=== PATIENT | female | born 1970 | race Hispanic/Latino ===

== ENCOUNTER 2017-03-16 01:34 | Emergency (ER) | payer OTHER ==
[2017-03-16 01:45] VITALS: BMI 33.0
[2017-03-16 01:54] VITALS: TEMP 98.3
[2017-03-16] MEDS ORDERED: Tmp-Smz 800 mg-160 mg DS Tab PO STA (03:02)
[2017-03-16] MEDS ORDERED: Oxycodone/Acetaminophen 5/325 mg Tab PO STA (03:02)
[2017-03-16] MEDS ORDERED: Amoxicillin-Clav 875-125 mg Tab PO STA (03:03)
[2017-03-16 03:23] VITALS: BP 108/76; PULSE 78; RESP 18; O2SAT 98
--- NOTE | 2017-03-16 03:47 | ED PDOC ---
Arrival/HPI - General Chief Complaint: Breast Problem Time Seen by Provider: 03/16/17 03:01 Historian: Patient - History of Present Illness Narrative History of Present Illness (Text): 03/16/17 02:47 A 46 year old female, with a history of diverticulosis, presents to the emergency department complaining of worsening pain and redness of a left breast abscess that she noticed 4 days ago. Patient noticed abscess after taking off bathing suit and is unsure of what caused abscess development. Patient reports went to PMD, who cleaned abscess in office. Patient notes vomiting and diarrhea from what she thinks is Cephalexin that PMD prescribed. Patient reports no relief after taking Tylenol. PMD: Dr. Del Cid Time/Duration: Other (4 days) Symptom Onset: Sudden Symptom Course: Unchanged Activities at Onset: Rest Modifying Factors (Text): no relief with tylenol Past Medical History - Provider Review Nursing Documentation Reviewed: Yes - Infectious Disease Hx of Infectious Diseases: None - Tetanus Immunization Tetanus Immunization: Unknown - Reproductive Menopause: Yes - Cardiac Hx Hypertension: Yes - Pulmonary Hx Respiratory Disorders: Yes Hx Chronic Obstructive Pulmonary Disease (COPD): Yes Hx Tuberculosis: No - Neurological HX Cerebrovascular Accident: No Hx Seizures: No - HEENT Hx HEENT Disorder: No - Renal Hx Renal Disorder: No - Endocrine/Metabolic Hx Endocrine Disorders: No - Hematological/Oncological Hx Blood Disorders: No Hx Cancer: No - Integumentary Hx Dermatological Disorder: No - Musculoskeletal/Rheumatological Hx Musculoskeletal Disorders: No - Gastrointestinal Hx Gastrointestinal Disorders: No Hx Diarrhea: Yes - Genitourinary/Gynecological Hx Genitourinary Disorders: No Hx Sexually Transmitted Diseases: No - Psychiatric Hx Psychophysiologic Disorder: Yes Hx Anxiety: Yes Hx Depression: Yes Hx Substance Use: No - Surgical History Other/Comment: exploratory lung surgery 2011 - Anesthesia Hx Anesthesia: Yes Hx Anesthesia Reactions: No Hx Malignant Hyperthermia: No - Suicidal Assessment Feels Threatened In Home Enviroment: No Family/Social History - Physician Review Nursing Documentation Reviewed: Yes Family/Social History: No Known Family HX Smoking Status: Heavy Smoker > 10 Cigarettes Daily Hx Alcohol Use: Yes Frequency of alcohol use: Socially Hx Substance Use: No Hx Substance Use Treatment: No Allergies/Home Meds Allergies/Adverse Reactions: Allergies ciprofloxacin [From Cipro] Allergy (Mild, Verified 03/16/17 01:45) RASH ciprofloxacin HCl [From Cipro] Allergy (Mild, Verified 03/16/17 01:45) RASH cephalexin Adverse Reaction (Verified 03/16/17 01:46) DIARRHEA Home Medications: Home Meds Medication Instructions Recorded Confirmed Escitalopram [Lexapro] 20 mg PO HS 04/11/13 03/16/17 diaZEpam [Valium] 10 mg PO PRN PRN 04/11/13 03/16/17 amLODIPine [Norvasc] 1 tab PO DAILY 12/07/15 03/16/17 Montelukast [Singulair] 10 mg PO DAILY 03/16/17 03/16/17 Review of Systems - Physician Review All systems were reviewed & negative as marked: Yes - Review of Systems Gastrointestinal: Diarrhea, Vomiting Skin: Abscess (Left breast) Physical Exam Vital Signs Reviewed: Yes Vital Signs Temp Pulse Resp BP Pulse Ox 03/16/17 03:23 78 18 108/76 98 03/16/17 01:53 98.3 F 82 14 115/79 96 Temperature: Afebrile Blood Pressure: Normal Pulse: Regular Respiratory Rate: Normal Appearance: Positive for: Well-Appearing, Non-Toxic, Comfortable Pain Distress: None Mental Status: Positive for: Alert and Oriented X 3 - Systems Exam Head: Present: Atraumatic, Normocephalic Pupils: Present: PERRL Extroacular Muscles: Present: EOMI Conjunctiva: Present: Normal Mouth: Present: Moist Mucous Membranes Neck: Present: Normal Range of Motion Respiratory/Chest: Present: Clear to Auscultation, Good Air Exchange. No: Respiratory Distress, Accessory Muscle Use Cardiovascular: Present: Regular Rate and Rhythm, Normal S1, S2. No: Murmurs Abdomen: Present: Normal Bowel Sounds. No: Tenderness, Distention, Peritoneal Signs Breast/Axillary: Present: Other (2 by 3 cm circular scab with small amount of surrounding erythema on L medial breast). No: Fluctuance Back: Present: Normal Inspection Upper Extremity: Present: Normal Inspection. No: Cyanosis, Edema Lower Extremity: Present: Normal Inspection. No: Edema Neurological: Present: GCS=15, CN II-XII Intact, Speech Normal Skin: Present: Warm, Dry, Normal Color. No: Rashes Psychiatric: Present: Alert, Oriented x 3, Normal Insight, Normal Concentration Medical Decision Making - Medication Orders Current Medication Orders: Discontinued Medications Amoxicillin/Clavulanate Potassium (Augmentin 875 Mg-125 Mg Tab) 1 tab PO STAT STA PRN Reason: Protocol Stop: 03/16/17 03:04 Last Admin: 03/16/17 03:19 Dose: 1 tab Oxycodone/Acetaminophen (Percocet 5/325 Mg Tab) 1 tab PO STAT STA Stop: 03/16/17 03:03 Last Admin: 03/16/17 03:19 Dose: 1 tab Trimethoprim/Sulfamethoxazole (Bactrim Ds Tab) 2 tab PO STAT STA PRN Reason: Protocol Stop: 03/16/17 03:03 Last Admin: 03/16/17 03:19 Dose: 2 tab - Scribe Statement The provider has reviewed the documentation as recorded by the Guanakito Peraza Provider Scribe Attestation: All medical record entries made by the Guanakito were at my direction and personally dictated by me. I have reviewed the chart and agree that the record accurately reflects my personal performance of the history, physical exam, medical decision making, and the department course for this patient. I have also personally directed, reviewed, and agree with the discharge instructions and disposition. Disposition/Present on Arrival - Present on Arrival History of DVT/PE: No History of Uncontrolled Diabetes: No Urinary Catheter: No History of Decub. Ulcer: No History Surgical Site Infection Following: None - Disposition Diagnosis: Cellulitis Disposition: HOME/ ROUTINE Disposition Time: 03:03 Condition: STABLE Discharge Instructions (ExitCare): Cellulitis (ED) Additional Instructions: Please follow up with your doctor on Saturday. Return to the ER for any worsening symptoms or for any other concerns. Prescriptions: Acetaminophen with Codeine [Tylenol with Codeine #3 Tablet] 1 each PO Q4H PRN # 10 tablet PRN Reason: Pain, Moderate (4-7) Amoxicillin/Clavulanate [Augmentin 875 MG-125 MG] 1 tab PO BID #20 tab Sulfamethoxazole/Trimethoprim [Bactrim DS 800 mg-160 mg] 2 tab PO BID #40 tab Referrals: Claudia Del Cid DO [Primary Care Provider] - Follow up with primary
== END 2017-03-16 03:23 | disposition home or self-care (01) ==
LOC: ED 01:34
DX: N61.1 Abscess of the breast and nipple (principal)

== ENCOUNTER 2018-04-04 00:16 | Emergency (ER) | payer OTHER ==
[2018-04-04 00:16] VITALS: BMI 33.0
--- NOTE | 2018-04-04 01:19 | ED PDOC ---
Arrival/HPI - General Chief Complaint: Alcohol Ingestion Time Seen by Provider: 04/04/18 01:19 Historian: Patient - History of Present Illness Narrative History of Present Illness (Text): 04/04/18 01:19 Ashley Walter is a 48 year old female, whose past medical history includes asthma and anxiety, who presents to the Emergency department brought in by EMS for alcohol intoxication tonight. Limited HPI and ROS secondary to alcohol intoxication. Time/Duration: Other (tonight) Symptom Onset: Gradual Symptom Course: Unchanged Activities at Onset: Light Past Medical History - Provider Review Nursing Documentation Reviewed: Yes - Infectious Disease Hx of Infectious Diseases: None - Tetanus Immunization Tetanus Immunization: Unknown - Cardiac Hx Hypertension: Yes - Pulmonary Hx Respiratory Disorders: Yes Hx Chronic Obstructive Pulmonary Disease (COPD): Yes Hx Tuberculosis: No - Neurological HX Cerebrovascular Accident: No Hx Seizures: No - HEENT Hx HEENT Disorder: No - Renal Hx Renal Disorder: No - Endocrine/Metabolic Hx Endocrine Disorders: No - Hematological/Oncological Hx Blood Disorders: No Hx Cancer: No - Integumentary Hx Dermatological Disorder: No - Musculoskeletal/Rheumatological Hx Musculoskeletal Disorders: No - Gastrointestinal Hx Gastrointestinal Disorders: No Hx Diarrhea: Yes - Genitourinary/Gynecological Hx Genitourinary Disorders: No Hx Sexually Transmitted Diseases: No - Psychiatric Hx Psychophysiologic Disorder: Yes Hx Anxiety: Yes Hx Depression: Yes Hx Substance Use: No - Surgical History Other/Comment: exploratory lung surgery 2011 - Anesthesia Hx Anesthesia: Yes Hx Anesthesia Reactions: No Hx Malignant Hyperthermia: No - Suicidal Assessment Feels Threatened In Home Enviroment: No Family/Social History - Physician Review Nursing Documentation Reviewed: Yes Family/Social History: Unknown Family HX Smoking Status: Heavy Smoker > 10 Cigarettes Daily Hx Alcohol Use: Yes Hx Substance Use: No Hx Substance Use Treatment: No Allergies/Home Meds Allergies/Adverse Reactions: Allergies ciprofloxacin [From Cipro] Allergy (Mild, Verified 03/16/17 01:45) RASH ciprofloxacin HCl [From Cipro] Allergy (Mild, Verified 03/16/17 01:45) RASH cephalexin Adverse Reaction (Verified 03/16/17 01:46) DIARRHEA Home Medications: Home Meds Medication Instructions Recorded Confirmed Escitalopram [Lexapro] 20 mg PO HS 04/11/13 03/16/17 diaZEpam [Valium] 10 mg PO PRN PRN 04/11/13 03/16/17 amLODIPine [Norvasc] 1 tab PO DAILY 12/07/15 03/16/17 Montelukast [Singulair] 10 mg PO DAILY 03/16/17 03/16/17 Review of Systems - Review of Systems Systems not reviewed;Unavailable: Intoxicated Physical Exam Vital Signs Reviewed: Yes Vital Signs Temp Pulse Resp BP Pulse Ox 04/04/18 04:48 78 18 138/97 H 97 04/04/18 00:36 98.4 F 93 H 17 101/73 96 Temperature: Afebrile Blood Pressure: Normal Pulse: Regular Respiratory Rate: Normal Pain Distress: None Mental Status: Positive for: other (Intoxicated) - Systems Exam Head: Present: Atraumatic, Normocephalic Pupils: Present: PERRL Extroacular Muscles: Present: EOMI Conjunctiva: Present: Normal Mouth: Present: Moist Mucous Membranes Neck: Present: Normal Range of Motion Respiratory/Chest: Present: Clear to Auscultation, Good Air Exchange. No: Respiratory Distress, Accessory Muscle Use Cardiovascular: Present: Regular Rate and Rhythm, Normal S1, S2. No: Murmurs Abdomen: No: Tenderness, Distention, Peritoneal Signs Back: Present: Normal Inspection Upper Extremity: Present: Normal Inspection. No: Cyanosis, Edema Lower Extremity: Present: Normal Inspection. No: Edema Neurological: Present: GCS=15, CN II-XII Intact, Speech Normal Skin: Present: Warm, Dry, Normal Color. No: Rashes Psychiatric: Present: Intoxicated Medical Decision Making ED Course and Treatment: 04/04/18 01:19 Impression: 48 year old female brought in for alcohol intoxication. Plan: -- Reassess and disposition Progress Notes: 04/04/18 05:58 Pt awake, alert, ambulating with steady gait. In no acute distress, clinically sober. Pt denies any complaints, states she feels fine. Pt stable for d/c. - Scribe Statement The provider has reviewed the documentation as recorded by the Guanakito Gómez Provider Scribe Attestation: All medical record entries made by the Scribe were at my direction and personally dictated by me. I have reviewed the chart and agree that the record accurately reflects my personal performance of the history, physical exam, medical decision making, and the department course for this patient. I have also personally directed, reviewed, and agree with the discharge instructions and disposition. Disposition/Present on Arrival - Present on Arrival Any Indicators Present on Arrival: No History of DVT/PE: No History of Uncontrolled Diabetes: No Urinary Catheter: No History of Decub. Ulcer: No History Surgical Site Infection Following: None - Disposition Have Diagnosis and Disposition been Completed?: Yes Diagnosis: Alcohol intoxication Disposition: HOME/ ROUTINE Disposition Time: 04:00 Patient Problems: Current Active Problems Problem Status Onset Alcohol intoxication Acute Condition: IMPROVED Discharge Instructions (ExitCare): Alcohol Abuse and Alcoholism (DC) Additional Instructions: ASHLEY WALTER, thank you for letting us take care of you today. Your provider was Sivakumar Rendon DO and you were treated for ETOH. The emergency medical care you received today was directed at your acute symptoms. If you were prescribed any medication, please fill it and take as directed. It may take several days for your symptoms to resolve. Return to the Emergency Department if your symptoms worsen, do not improve, or if you have any other problems. Please contact your doctor or call one of the physicians/clinics you have been referred to that are listed on the Patient Visit Information form that is included in your discharge packet. Bring any paperwork you were given at discharge with you along with any medications you are taking to your follow up visit. Our treatment cannot replace ongoing medical care by a primary care provider outside of the emergency department. Thank you for allowing the [facility] team to be part of your care today. Do not drink too much alcohol. Follow up with your primary care doctor if you have any concerns. Referrals: [facility], [Non-Staff] - Follow up with primary Forms: [email or web address] (Turkish)
--- NOTE | 2018-04-04 05:03 | PCM.FALL ---
<Homar Puri - Last Filed: 04/04/18 04:59> Post Fall Progress Note - Post Fall Fall Date: 04/04/18 Fall Time: 04:45 - Post Fall Exam Vital Sign: Temp Pulse Resp BP Pulse Ox 98.4 F 78 18 138/97 H 97 04/04/18 00:36 04/04/18 04:48 04/04/18 04:48 04/04/18 04:48 04/04/18 04:48 Skull Exam: Negative for: Scalp wound, Scalp hematoma, Scalp depression, Ridge in skull Eye Exam: Positive for: Pupils equal, Pupils reactive Ear Exam: Negative for: Discharge, Bleeding Nose Exam: Negative for: Discharge, Bleeding Skin Exam: Negative for: Colour, Lacerations, Grazes, Bruising Mouth Exam: Negative for: Tongue bitten, Teeth dislodge Neck Exam: Negative for: Tenderness, Tingling, Weakness Spinal Exam: Negative for: Tenderness, Tingling, Weakness Chest Exam: Negative for: Difficulty breathing, Tenderness in collar bones, Tenderness in ribs Abdomen Exam: Negative for: Tenderness Pelvic Exam: Negative for: Tenderness, Hematuria Arm Exam: Negative for: Deformity, Alteration in range of movement Leg Exam: Negative for: Deformity, Alteration in range of movement Impression/Plan: 48 year old female under ED management for acute alcohol intoxication presents s /p fall. Patient was examined with senior resident. Patient denies hitting her head, injuring her extremities, and denies any other injury. Patient denies any LOC, dizziness, or pre-syncopal events, including arrythmia or aura. Patient is A/o x4 and has good insight. She states that she fell due to her acute alcohol intoxication. A/P -No acute intervention necessary at this time as patient subjectively and objectively has no head trauma, no BUSTAMANTE, no loss of vision, no tenderness to palpation on her head, extremities, or torso. Will continue to monitor closely. <Derrick Fu - Last Filed: 04/04/18 05:45> Post Fall Progress Note - Post Fall Exam Vital Sign: Temp Pulse Resp BP Pulse Ox 98.4 F 78 18 138/97 H 97 04/04/18 00:36 04/04/18 04:48 04/04/18 04:48 04/04/18 04:48 04/04/18 04:48
[2018-04-04 06:51] VITALS: BP 138/82; PULSE 72; RESP 17; TEMP 98; O2SAT 98
== END 2018-04-04 06:51 | disposition home or self-care (01) ==
LOC: ED 00:16
DX: F10.129 Alcohol abuse with intoxication, unspecified (principal); F17.210 Nicotine dependence, cigarettes, uncomplicated; I10 Essential (primary) hypertension

== ENCOUNTER 2018-09-22 21:45 | Emergency (ER) | payer OTHER ==
[2018-09-22 21:46] VITALS: BMI 33.0
--- NOTE | 2018-09-22 23:10 | ED PDOC ---
Arrival/HPI - General Chief Complaint: Alcohol Ingestion Time Seen by Provider: 09/22/18 21:46 Historian: Patient - History of Present Illness Narrative History of Present Illness (Text): 09/22/18 23:09 48 year old female with pmhx of asthma and anxiety presents to the ED by EMS for public intoxication tonight. Patient reports she had a verbal argument with her brother and admits to drinking tonight. Patient denies any fever, chills, chest pain, shortness of breath, nausea, vomiting, diarrhea, urinary symptoms, back pain, neck pain, headache, dizziness, or any other complaints. PMD: Dr. Del Cid Time/Duration: Other (tonight) Symptom Onset: Gradual Activities at Onset: Light Context: Street Past Medical History - Provider Review Nursing Documentation Reviewed: Yes - Infectious Disease Hx of Infectious Diseases: None - Tetanus Immunization Tetanus Immunization: Unknown - Cardiac Hx Hypertension: Yes - Pulmonary Hx Respiratory Disorders: Yes Hx Chronic Obstructive Pulmonary Disease (COPD): Yes Hx Tuberculosis: No - Neurological HX Cerebrovascular Accident: No Hx Seizures: No - HEENT Hx HEENT Disorder: No - Renal Hx Renal Disorder: No - Endocrine/Metabolic Hx Endocrine Disorders: No - Hematological/Oncological Hx Blood Disorders: No Hx Cancer: No - Integumentary Hx Dermatological Disorder: No - Musculoskeletal/Rheumatological Hx Musculoskeletal Disorders: No - Gastrointestinal Hx Gastrointestinal Disorders: No Hx Diarrhea: Yes - Genitourinary/Gynecological Hx Genitourinary Disorders: No Hx Sexually Transmitted Diseases: No - Psychiatric Hx Psychophysiologic Disorder: Yes Hx Anxiety: Yes Hx Depression: Yes Hx Substance Use: No - Surgical History Other/Comment: exploratory lung surgery 2011 - Anesthesia Hx Anesthesia: Yes Hx Anesthesia Reactions: No Hx Malignant Hyperthermia: No - Suicidal Assessment Feels Threatened In Home Enviroment: No Family/Social History - Physician Review Nursing Documentation Reviewed: Yes Family/Social History: No Known Family HX Smoking Status: Heavy Smoker > 10 Cigarettes Daily Hx Alcohol Use: Yes Frequency of alcohol use: Daily Hx Substance Use: No Hx Substance Use Treatment: No Allergies/Home Meds Allergies/Adverse Reactions: Allergies ciprofloxacin [From Cipro] Allergy (Mild, Verified 09/22/18 21:59) RASH ciprofloxacin HCl [From Cipro] Allergy (Mild, Verified 09/22/18 21:59) RASH cephalexin Adverse Reaction (Verified 09/22/18 21:59) DIARRHEA Home Medications: Home Meds Medication Instructions Recorded Confirmed Escitalopram [Lexapro] 20 mg PO HS 04/11/13 03/16/17 diaZEpam [Valium] 10 mg PO PRN PRN 04/11/13 03/16/17 amLODIPine [Norvasc] 1 tab PO DAILY 12/07/15 03/16/17 Montelukast [Singulair] 10 mg PO DAILY 03/16/17 03/16/17 Review of Systems - Physician Review All systems were reviewed & negative as marked: Yes - Review of Systems Constitutional: absent: Fevers, Other (Chills) Respiratory: absent: SOB Cardiovascular: absent: Chest Pain Gastrointestinal: absent: Diarrhea, Nausea, Vomiting Genitourinary Female: absent: Dysuria, Frequency, Hematuria Musculoskeletal: absent: Back Pain, Neck Pain Neurological: absent: Headache, Dizziness Physical Exam - Physical Exam Narrative Physical Exam (Text): Gen: VS reviewed, alert, well developed, well nourished, nontoxic, mild distress. Intoxicated ENT: normal pharynx. Eye: EOMI, PERRL. Neck: no JVD, supple, no adenopathy. CV: regular rate, regular rhythm, no rubs, no murmur, no gallops, S1, S2, pulses equal and strong. Pulm: no distress, clear to auscultation, no wheeze, no rhonchi, breath sounds equal, no rales. Abd: soft, nontender, no guarding, no rebound, no rigidity, normal bowel sounds. Ext: no edema. Skin: good color, no rash, no cyanosis. Psych: responds appropriately to questions, normal affect. Intoxicated. Neuro: oriented x 3, CN2-12 intact grossly, motor intact, sensation intact. Vital Signs Reviewed: Yes Vital Signs Temp Pulse Resp BP Pulse Ox 09/22/18 22:12 98.1 F 87 18 119/78 95 Temperature: Afebrile Blood Pressure: Normal Pulse: Regular Respiratory Rate: Normal Medical Decision Making ED Course and Treatment: 09/22/18 23:09 Impression: 48 year old female presents for public intoxication. Plan: -- Reassess and disposition Prior Visits: Notes and results from previous visits were reviewed. Progress Notes: 09/23/18 06:15 patient seen for alcohol intoxication. patient observed clinically until sobriety. patient has clear speech and steady gait. patient does not exhibit any s/s of alcohol withdrawal, no physical evidence of trauma. patient stable for dc. - Scribe Statement The provider has reviewed the documentation as recorded by the Janieibbriseyda Cheng Provider Scribe Attestation: All medical record entries made by the Scribe were at my direction and personally dictated by me. I have reviewed the chart and agree that the record accurately reflects my personal performance of the history, physical exam, medical decision making, and the department course for this patient. I have also personally directed, reviewed, and agree with the discharge instructions and disposition. Disposition/Present on Arrival - Present on Arrival Any Indicators Present on Arrival: No History of DVT/PE: No History of Uncontrolled Diabetes: No Urinary Catheter: No History of Decub. Ulcer: No History Surgical Site Infection Following: None - Disposition Have Diagnosis and Disposition been Completed?: Yes Diagnosis: Alcohol intoxication Disposition: HOME/ ROUTINE Disposition Time: 06:17 Patient Plan: Discharge Condition: STABLE Discharge Instructions (ExitCare): Alcohol Abuse and Alcoholism (DC) Additional Instructions: you should seek help for your alcohol abuse. Referrals: [facility] [Outside] - Follow up with primary Forms: [employer] (V[place]an)
[2018-09-23 04:48] VITALS: O2SAT 96
[2018-09-23 06:42] VITALS: BP 120/70; PULSE 86; RESP 18; TEMP 98.2
== END 2018-09-23 06:41 | disposition home or self-care (01) ==
LOC: ED 21:45
DX: F10.129 Alcohol abuse with intoxication, unspecified (principal)

== ENCOUNTER 2018-10-25 23:49 | Emergency (ER) | payer OTHER ==
[2018-10-25 23:59] VITALS: BMI 34.4
[2018-10-26 00:13] VITALS: TEMP 97.5
--- NOTE | 2018-10-26 00:15 | ED PDOC ---
Arrival/HPI - General Chief Complaint: Alcohol Ingestion Time Seen by Provider: 10/25/18 23:51 Historian: Patient - History of Present Illness Narrative History of Present Illness (Text): 10/26/18 00:09 48 year old female, whose past medical history includes asthma, anxiety, and alcohol abuse, presents to the emergency department by EMS for public intoxication tonight. Patient admits to drinking alcohol and states she fell and hurt her left knee and right fifth finger. Patient denies any drug use. Patient denies any fever, chills, chest pain, shortness of breath, nausea, vomiting, diarrhea, urinary symptoms, back pain, neck pain, headache, dizziness, or any other complaints/injuries. Time/Duration: Other (tonight) Symptom Onset: Gradual Symptom Course: Unchanged Context: Street Past Medical History - Provider Review Nursing Documentation Reviewed: Yes - Infectious Disease Hx of Infectious Diseases: None - Tetanus Immunization Tetanus Immunization: Unknown - Cardiac Hx Hypertension: Yes - Pulmonary Hx Respiratory Disorders: Yes Hx Chronic Obstructive Pulmonary Disease (COPD): Yes Hx Tuberculosis: No - Neurological HX Cerebrovascular Accident: No Hx Seizures: No - HEENT Hx HEENT Disorder: No - Renal Hx Renal Disorder: No - Endocrine/Metabolic Hx Endocrine Disorders: No - Hematological/Oncological Hx Blood Disorders: No Hx Cancer: No - Integumentary Hx Dermatological Disorder: No - Musculoskeletal/Rheumatological Hx Musculoskeletal Disorders: No - Gastrointestinal Hx Gastrointestinal Disorders: No Hx Diarrhea: Yes - Genitourinary/Gynecological Hx Genitourinary Disorders: No Hx Sexually Transmitted Diseases: No - Psychiatric Hx Psychophysiologic Disorder: Yes Hx Anxiety: Yes Hx Depression: Yes Hx Substance Use: No - Surgical History Other/Comment: exploratory lung surgery 2011 - Anesthesia Hx Anesthesia: Yes Hx Anesthesia Reactions: No Hx Malignant Hyperthermia: No - Suicidal Assessment Feels Threatened In Home Enviroment: No Family/Social History - Physician Review Nursing Documentation Reviewed: Yes Family/Social History: No Known Family HX Smoking Status: Heavy Smoker > 10 Cigarettes Daily Hx Alcohol Use: Yes Hx Substance Use: No Hx Substance Use Treatment: No Allergies/Home Meds Allergies/Adverse Reactions: Allergies ciprofloxacin [From Cipro] Allergy (Mild, Verified 09/22/18 21:59) RASH ciprofloxacin HCl [From Cipro] Allergy (Mild, Verified 09/22/18 21:59) RASH cephalexin Adverse Reaction (Verified 09/22/18 21:59) DIARRHEA Home Medications: Home Meds Medication Instructions Recorded Confirmed RX: Escitalopram [Lexapro] 20 mg PO HS 04/11/13 10/26/18 RX: diaZEpam [Valium] 10 mg PO PRN PRN 04/11/13 10/26/18 RX: amLODIPine [Norvasc] 1 tab PO DAILY 12/07/15 10/26/18 Montelukast [Singulair] 10 mg PO DAILY 03/16/17 10/26/18 Review of Systems - Physician Review All systems were reviewed & negative as marked: Yes - Review of Systems Constitutional: absent: Fevers, Other (Chills) Respiratory: absent: SOB Cardiovascular: absent: Chest Pain Gastrointestinal: absent: Diarrhea, Nausea, Vomiting Genitourinary Female: absent: Dysuria, Frequency Musculoskeletal: Other (left knee and right fifth finger pain). absent: Back Pain, Neck Pain Neurological: absent: Headache, Dizziness Physical Exam Vital Signs Reviewed: Yes Temperature: Afebrile Blood Pressure: Normal Pulse: Regular Respiratory Rate: Normal Appearance: Positive for: Well-Appearing, Non-Toxic, Comfortable Pain Distress: None Mental Status: Positive for: Alert and Oriented X 3 (intoxicated) - Systems Exam Head: Present: Atraumatic, Normocephalic Pupils: Present: PERRL Extroacular Muscles: Present: EOMI Conjunctiva: Present: Normal Mouth: Present: Moist Mucous Membranes Neck: Present: Normal Range of Motion Respiratory/Chest: Present: Clear to Auscultation, Good Air Exchange. No: Respiratory Distress, Accessory Muscle Use Cardiovascular: Present: Regular Rate and Rhythm, Normal S1, S2. No: Murmurs Abdomen: No: Tenderness, Distention, Peritoneal Signs Back: Present: Normal Inspection Upper Extremity: Present: Normal Inspection, Neurovascularly Intact, Other (discomfort to right fifth finger with some discomfort with flexion of finger). No: Cyanosis, Edema Lower Extremity: Present: Normal ROM, Neurovascularly Intact, Other (abrasion to the left anterior knee, superficial abrasion to left lower leg). No: Edema, Swelling Neurological: Present: GCS=15, CN II-XII Intact, Speech Normal Skin: Present: Warm, Dry, Normal Color. No: Rashes Psychiatric: Present: Alert, Oriented x 3, Normal Insight, Normal Concentration, Intoxicated Medical Decision Making ED Course and Treatment: 10/26/18 00:09 Impression: 48 year old female presents for public intoxication tonight. Patient fell injuring her left knee and right fifth finger. Plan: -- sobriety -- Splint -- Hand right 5th digit x-ray -- Knee w/ patella left 3V x-ray -- Reassess and disposition Prior Visits: Notes and results from previous visits were reviewed. Progress Notes: 10/26/18 02:25 Hand right 5th digit x-ray impression: As read by me, negative for fracture. Knee w/ patella left 3V x-ray impression: As read by me, negative for fracture. - Scribe Statement The provider has reviewed the documentation as recorded by the Scribe Lalito Cheng Provider Scribe Attestation: All medical record entries made by the Scribe were at my direction and personally dictated by me. I have reviewed the chart and agree that the record accurately reflects my personal performance of the history, physical exam, me dical decision making, and the department course for this patient. I have also personally directed, reviewed, and agree with the discharge instructions and disposition. Disposition/Present on Arrival - Present on Arrival Any Indicators Present on Arrival: No History of DVT/PE: No History of Uncontrolled Diabetes: No Urinary Catheter: No History of Decub. Ulcer: No History Surgical Site Infection Following: None - Disposition Have Diagnosis and Disposition been Completed?: Yes Diagnosis: Alcohol intoxication, Finger sprain, Knee abrasion Disposition: HOME/ ROUTINE Disposition Time: 07:22 Patient Plan: Discharge Condition: GOOD Discharge Instructions (ExitCare): Finger Sprain (DC), Alcohol Abuse and Alcoholism (DC), Skin Abrasions (DC) Additional Instructions: Maintain finger splint/bacitracin to skin abrasions as prescribed/follow up with the orthopedist this week Prescriptions: RX: Bacitracin Ointment [Bacitracin] 30 gm TOP BID #30 tube Referrals: Claudia Del Cid DO [Primary Care Provider] - Follow up with primary Ramsey Cárdenas III, MD [Medical Doctor] - Follow up with primary Forms: [employer] ([place])
[2018-10-26 08:01] VITALS: BP 137/87; PULSE 89; RESP 17; O2SAT 100
--- NOTE | 2018-10-26 11:28 | RAD ---
Date of service: 10/26/2018 PROCEDURE: Right small finger radiographs. HISTORY: injury COMPARISON: None. TECHNIQUE: AP radiograph of the right hand, as well as spot oblique and lateral images of small finger were obtained. FINDINGS: RIGHT SMALL FINGER: Normal right small finger, without fracture or focal lesion. Remainder of the right hand (as seen on the AP view) grossly unremarkable. JOINTS: Normal. SOFT TISSUES: Normal. OTHER FINDINGS: None. IMPRESSION: No evidence of acute fracture or dislocation.
--- NOTE | 2018-10-26 11:30 | RAD ---
Date of service: 10/26/2018 PROCEDURE: Left Knee Radiographs. HISTORY: Pain. COMPARISON: Comparison is made to the previous study dated 02/17/2014 FINDINGS: BONES: Normal. No fracture. JOINTS: Mild osteoarthritic changes are noted. JOINT EFFUSION: No radiographic evidence of significant joint effusion. OTHER FINDINGS: None. IMPRESSION: Mild osteoarthritic changes. No evidence of acute fracture or dislocation.
== END 2018-10-26 08:06 | disposition home or self-care (01) ==
LOC: ED 23:49
DX: F10.129 Alcohol abuse with intoxication, unspecified (principal); S80.212A Abrasion, left knee, initial encounter; S63.616A Unspecified sprain of right little finger, initial encounter; W19.XXXA Unspecified fall, initial encounter; F17.210 Nicotine dependence, cigarettes, uncomplicated; I10 Essential (primary) hypertension; J44.9 Chronic obstructive pulmonary disease, unspecified

== ENCOUNTER 2018-12-17 22:24 | Emergency (ER) | payer OTHER ==
[2018-12-17 22:24] VITALS: BMI 34.4
[2018-12-17 23:12] VITALS: TEMP 97.6
[2018-12-17] MEDS ORDERED: Dexamethasone 4 mg/1 ml IM STA (23:24)
[2018-12-17] MEDS ORDERED: Lidocaine 5% Patch TD STA (23:24)
[2018-12-18 00:07] LABS: URINE BILIRUBIN NEGATIVE (NEGATIVE); URINE BLOOD NEGATIVE (NEGATIVE); URINE GLUCOSE (UA) NEGATIVE (NEGATIVE); URINE LEUKOCYTE ESTERASE NEGATIVE Leu/uL (NEGATIVE); URINE PROTEIN NEGATIVE mg/dL (<30 mg/dL); URINE UROBILINOGEN 0.2 E.U./dL (<1 E.U./dL)
[2018-12-18 00:08] LABS: URINE APPEARANCE CLEAR (CLEAR); URINE COLOR YELLOW (YELLOW)
--- NOTE | 2018-12-18 00:11 | ED PDOC ---
Arrival/HPI - General Chief Complaint: Back Pain Time Seen by Provider: 12/17/18 23:03 Historian: Patient - History of Present Illness Narrative History of Present Illness (Text): 48 year old female us medical history of HTN, chronic back pain, depression, and alcohol abuse presents to the emergency department complaining of acute exacerbation of chronic back pain for one and a half weeks. Patient started a new job one and a half weeks ago that entails a lot of standing which she states makes her back pain worse. Associated intermittent bilateral radiculopathy and paresthesias to bilateral toes. Took 800mg ibuprofen prior to arrival without relief. Patient sees her back doctor the first week in December. She has had imaging of her lumbar spine in the past, showing multiple herniated discs. States this pain is typical of her chronic pain. Patient also complaining of left hand second digit pain s/p being shut in a door 3 weeks ago. Denies fever, chills, saddle anesthesia, bowel/bladder incontinence, abdominal pain, nausea, vomiting, weakness, urinary symptoms, or any other associated symptoms. Past Medical History - Provider Review Nursing Documentation Reviewed: Yes - Infectious Disease Hx of Infectious Diseases: None - Tetanus Immunization Tetanus Immunization: Unknown - Cardiac Hx Hypertension: Yes - Pulmonary Hx Respiratory Disorders: Yes Hx Chronic Obstructive Pulmonary Disease (COPD): Yes Hx Tuberculosis: No - Neurological HX Cerebrovascular Accident: No Hx Seizures: No - HEENT Hx HEENT Disorder: No - Renal Hx Renal Disorder: No - Endocrine/Metabolic Hx Endocrine Disorders: No - Hematological/Oncological Hx Blood Disorders: No Hx Cancer: No - Integumentary Hx Dermatological Disorder: No - Musculoskeletal/Rheumatological Hx Musculoskeletal Disorders: No - Gastrointestinal Hx Gastrointestinal Disorders: No Hx Diarrhea: Yes - Genitourinary/Gynecological Hx Genitourinary Disorders: No Hx Sexually Transmitted Diseases: No - Psychiatric Hx Psychophysiologic Disorder: Yes Hx Anxiety: Yes Hx Depression: Yes Hx Substance Use: No - Surgical History Other/Comment: exploratory lung surgery 2011 - Anesthesia Hx Anesthesia: Yes Hx Anesthesia Reactions: No Hx Malignant Hyperthermia: No - Suicidal Assessment Feels Threatened In Home Enviroment: No Family/Social History - Physician Review Nursing Documentation Reviewed: Yes Family/Social History: No Known Family HX Smoking Status: Heavy Smoker > 10 Cigarettes Daily Hx Alcohol Use: Yes Hx Substance Use: No Hx Substance Use Treatment: No Allergies/Home Meds Allergies/Adverse Reactions: Allergies ciprofloxacin [From Cipro] Allergy (Mild, Verified 09/22/18 21:59) RASH ciprofloxacin HCl [From Cipro] Allergy (Mild, Verified 09/22/18 21:59) RASH metronidazole [From Flagyl] Allergy (Verified 12/17/18 23:13) RASH sulfamethoxazole [From Bactrim] Allergy (Verified 12/17/18 23:13) RASH trimethoprim [From Bactrim] Allergy (Verified 12/17/18 23:13) RASH cephalexin Adverse Reaction (Verified 09/22/18 21:59) DIARRHEA Home Medications: Home Meds Medication Instructions Recorded Confirmed Escitalopram [Lexapro] 20 mg PO HS 04/11/13 10/26/18 diaZEpam [Valium] 10 mg PO PRN PRN 04/11/13 10/26/18 amLODIPine [Norvasc] 1 tab PO DAILY 12/07/15 10/26/18 Montelukast [Singulair] 10 mg PO DAILY 03/16/17 10/26/18 Review of Systems - Review of Systems Constitutional: Normal Eyes: Normal. absent: Vision Changes, Photophobia ENT: Normal. absent: Sore Throat, Sinus Congestion Respiratory: Normal. absent: SOB, Cough Cardiovascular: Normal. absent: Chest Pain, Palpitations Gastrointestinal: Normal. absent: Abdominal Pain, Nausea, Vomiting Genitourinary Female: Normal. absent: Dysuria, Frequency Musculoskeletal: Back Pain, Other (finger pain). absent: Neck Pain, Joint Swelling Skin: Normal. absent: Rash Neurological: Normal. absent: Headache, Dizziness Endocrine: Normal Hemo/Lymphatic: Normal Psychiatric: Normal Physical Exam Vital Signs Reviewed: Yes Vital Signs Temp Pulse Resp BP Pulse Ox 12/17/18 22:24 97.6 F 95 H 18 107/74 98 Temperature: Afebrile Blood Pressure: Normal Pulse: Regular Respiratory Rate: Normal Appearance: Positive for: Well-Appearing, Non-Toxic, Comfortable Pain Distress: None Mental Status: Positive for: Alert and Oriented X 3 - Systems Exam Head: Present: Atraumatic, Normocephalic Pupils: Present: PERRL Extroacular Muscles: Present: EOMI Conjunctiva: Present: Normal Mouth: Present: Moist Mucous Membranes Neck: Present: Normal Range of Motion. No: Meningeal Signs, MIDLINE TENDERNESS, Paraspinal Tenderness Respiratory/Chest: Present: Clear to Auscultation, Good Air Exchange. No: Respiratory Distress, Accessory Muscle Use Cardiovascular: Present: Regular Rate and Rhythm, Normal S1, S2, Peripheal Pulses Present Abdomen: Present: Normal Bowel Sounds. No: Tenderness, Distention, Peritoneal Signs, Rebound, Guarding Back: Present: Normal Inspection, Pain with Leg Raise (bilateral at 30 degrees, pain to right lumbar) Upper Extremity: Present: Normal Inspection, Normal ROM, NORMAL PULSES, Tenderness (distal phalanx 2nd digit, left hand), Neurovascularly Intact, Capillary Refill < 2s. No: Cyanosis, Edema, Swelling, Erythema, Temperature Abnormalties, Deformity Lower Extremity: Present: Normal Inspection, NORMAL PULSES, Normal ROM, Neurovascularly Intact, Capillary Refill < 2 s. No: Edema, Temperature Abnormalties Neurological: Present: GCS=15, CN II-XII Intact, Speech Normal, Motor Func Grossly Intact, Normal Sensory Function, Gait Normal Skin: Present: Warm, Dry, Normal Color. No: Rashes Psychiatric: Present: Alert, Oriented x 3, Normal Insight, Normal Concentration, Normal Affect, Normal Mood Medical Decision Making ED Course and Treatment: 12/17/18 23:59 Initial Plan: * Left hand XR * UA, culture * POC preg * Tramadol * Decadron 12/18/18 00:58 Xray negative for acute fracture as read by me. UA unremarkable Pt reports improvement in pain with medication. Advised orthopedic and PMD followup. Diagnostic testing results and plan of care discussed with patient. Strict instructions given regarding prescription use, importance of followup, and signs/symptoms to return to ER including saddle anesthesia, bowel/bladder incontinence or any other new/worsening symptoms. Pt verbalized understanding of discussion. Patient is A&Ox3, ambulating with steady gait, with vital signs stable for discharge. - Lab Interpretations Lab Results: Lab Results 12/17/18 23:37: Urine Color Yellow, Urine Appearance Clear, Urine pH 6.0, Ur Specific Welch 1.010, Urine Protein Negative, Urine Glucose (UA) Negative, Urine Ketones Negative, Urine Blood Negative, Urine Nitrate Negative, Urine Bilirubin Negative, Urine Urobilinogen 0.2, Ur Leukocyte Esterase Negative I have reviewed the lab results: Yes - RAD Interpretation Radiology Orders: 12/17/18 23:45 HAND LEFT 2ND DIGIT (FINGER) [RAD] Stat - Medication Orders Current Medication Orders: Discontinued Medications Dexamethasone (Decadron Inj) 10 mg IM STAT STA Stop: 12/17/18 23:25 Last Admin: 12/17/18 23:49 Dose: 10 mg IM Administration Charges Document 12/17/18 23:49 OCS (Rec: 12/17/18 23:49 OCS [facility] Charges for Administration # of IM Administrations 1 Lidocaine (Lidoderm) 1 ea TD STAT STA Stop: 12/17/18 23:25 Last Admin: 12/17/18 23:48 Dose: 1 ea MAR Transdermal Patch Site Document 12/17/18 23:48 OCS (Rec: 12/17/18 23:48 OCS [facility] Transdermal Patch Site Transdermal Patch Site Right Lower Back Tramadol HCl (Ultram) 50 mg PO STAT STA Stop: 12/17/18 23:25 Last Admin: 12/17/18 23:49 Dose: 50 mg MAR Pain Assessment Document 12/17/18 23:49 OCS (Rec: 12/17/18 23:49 OCS [facility]) Pain Reassessment Is this a pain reassessment? No Sleep Is patient sleeping during reassessment? No Presence of Pain Presence of Pain Yes Pain Scale Used Protocol: PSCALES Pain Scale Used Numeric Description Description Constant Intensity of Pain at present 10 Aggravating Factors ADL's Disposition/Present on Arrival - Present on Arrival Any Indicators Present on Arrival: No History of DVT/PE: No History of Uncontrolled Diabetes: No Urinary Catheter: No History of Decub. Ulcer: No History Surgical Site Infection Following: None - Disposition Have Diagnosis and Disposition been Completed?: Yes Diagnosis: Chronic back pain, Finger sprain Disposition: HOME/ ROUTINE Disposition Time: 00:59 Patient Plan: Discharge Condition: GOOD Discharge Instructions (ExitCare): Sciatica, Chronic Pain (DC), Sciatica Exercises Additional Instructions: Medrol dose pack as prescribed Ibuprofen every 8 hours as needed for pain Lidoderm patches daily as needed for pain 12 hours on, 12 hours off Exercises as directed Followup with back doctor within 2 days Followup with primary doctor within 2 days Return to ER with any new/worsening symptoms Prescriptions: Lidocaine 5% [Lidoderm] 1 ea TD DAILY PRN #30 patch PRN Reason: Pain, Mild (1-3) Methylprednisolone [Medrol Dose Pack (21 tabs)] 4 mg PO DAILY #21 mg Referrals: Nehemias,Kaylan, DO [Primary Care Provider] - Follow up with primary Ramsey Cárdenas III, MD [Medical Doctor] - Follow up with primary Forms: [employer] [facility] ([place]), WORK NOTE
[2018-12-18 01:03] VITALS: BP 113/78; PULSE 82; RESP 16; O2SAT 96
--- NOTE | 2018-12-18 10:48 | RAD ---
PROCEDURE: Left Hand and 2nd digit radiographs. HISTORY: trauma 3 wks ago, pain to distal phalanx COMPARISON: None. FINDINGS: BONES: Normal. No fracture. JOINTS: Normal. No osteoarthritic changes. SOFT TISSUES: Normal. OTHER FINDINGS: None. IMPRESSION: Negative study
== END 2018-12-18 01:21 | disposition home or self-care (01) ==
LOC: ED 22:24
DX: M54.9 Dorsalgia, unspecified (principal); G89.29 Other chronic pain
CPT/HCPCS: 73140; 81003; 81025; 96372; 99282; J1100